=== PATIENT | male | born 1975 | race Hispanic/Latino ===

== ENCOUNTER → 2024-12-08 09:57 | Outpatient (REF) | payer OTHER, SELFPAY ==
[2024-12-08 10:48] LABS: % Basophils 0.7 % (0-2); % Eosinophils 1.2 % (0-6); % Immature Granulocytes 0.4 % (0-0.5); % Lymphocytes 25.7 % (20.5-51.1); % Monocytes 8.2 % (1.7-9.3); % Neutrophils 63.8 % (42.2-75.2); Absolute Basophils 0.1 10^3/uL (0-0.2); Absolute Eosinophils 0.1 10^3/uL (0-0.7); Absolute Lymphocytes 1.9 10^3/uL (1.2-3.4); Absolute Monocytes 0.6 10^3/uL (0.1-0.6); Absolute Neutrophils 4.7 10^3/uL (1.4-6.5); Hematocrit 48.3 % (39.0-52.0); Hemoglobin 16.6 g/dL (13.0-18.0); Mean Corp Hgb Conc. 34.4 g/dL (33.0-37.0); Mean Corpuscular Volume 84.3 fL (80.0-94.0); Mean Platelet Volume 10.5 fL (7.4-10.4); Nucleated Red Blood Cells % 0 % (-); Platelet Count 196 10^3/uL (130-400); Red Blood Cell Count 5.73 10^6/uL (4.70-6.10); Red Cell Dist. Width 12.6 % (11.5-14.5); White Blood Cell Count 7.4 10^3/uL (4.8-10.8)
[2024-12-08 11:59] LABS: ALT (SGPT) 23 U/L (0-50); AST (SGOT) 21 U/L (17-59); Albumin 5.2 g/dl (3.5-5.0); Alkaline Phosphatase 66 U/L (38-126); Blood Urea Nitrogen 29 mg/dl (9-20); Calcium 9.9 mg/dl (8.4-10.2); Carbon Dioxide 31 mmol/L (22-30); Chloride 95 mmol/L (98-107); Glucose 156 mg/dl (70-99); HDL Cholesterol 40 mg/dl; LDL Cholesterol, Calculated 101 mg/dl; Potassium 4.4 mmol/L (3.5-5.1); Sodium 134 mmol/L (135-145); Total Cholesterol 215 mg/dl (50-199); Total Protein 7.9 g/dl (6.3-8.2); Triglyceride 373 mg/dl (10-149); Very Low Density Lipoprotein 74 mg/dl (0-30); eGFR > 60.00
[2024-12-08 12:27] LABS: PSA, Total - Screen 2.04 ng/ml (0.0-4.0)
[2024-12-08 12:49] LABS: Glycohemoglobin (HgbA1c) 7.5 % (4.0-5.6)
== END ==
LOC: CLINIC 09:57
PROVIDERS: ATTENDING PHYSICIAN Internal Medicine
DX: E11.311 Type 2 diabetes mellitus with unspecified diabetic retinopathy with macular edema (principal)
CPT/HCPCS: 36415; 80053; 80061; 83036; 85025; 85045; G0103

== ENCOUNTER → 2024-12-10 10:04 | Outpatient (REF) | payer OTHER, SELFPAY ==
[2024-12-11 15:38] LABS: FIT-Fecal Occult Blood Interp Negative
== END ==
LOC: CLINIC 10:04
PROVIDERS: ATTENDING PHYSICIAN Internal Medicine
DX: E11.311 Type 2 diabetes mellitus with unspecified diabetic retinopathy with macular edema (principal)
CPT/HCPCS: 83520

== ENCOUNTER → 2025-08-21 07:57 | Outpatient (REF) | payer OTHER, SELFPAY ==
[2025-08-21 10:38] LABS: Glycohemoglobin (HgbA1c) 8.0 % (4.0-5.9)
[2025-08-21 11:49] LABS: HDL Cholesterol 41 mg/dl
[2025-08-21 12:15] LABS: LDL Cholesterol, Direct 105 mg/dl
== END ==
LOC: CLINIC 07:57
PROVIDERS: ATTENDING PHYSICIAN Internal Medicine
DX: E11.311 Type 2 diabetes mellitus with unspecified diabetic retinopathy with macular edema (principal)
CPT/HCPCS: 36415; 80061; 83036; 83721